=== PATIENT | male | born 1990 | race Caucasian/White ===

== ENCOUNTER 2022-12-04 06:39 | Outpatient (CLI) | payer BC, SELFPAY ==
[2022-12-04 08:20] LABS: Hematocrit 47.5 % (42.0-52.0); Hemoglobin 15.8 g/dL (14.0-18.0); Mean Corpuscular HGB Conc 33.3 g/dl (32-36); Mean Corpuscular Hemoglobin 30.7 pg (26-34); Mean Corpuscular Volume 92.4 fl (80-100); Mean Platelet Volume 10.1 fl (7.4-10.4); Platelet Count Result 246 k/mm3 (150-375); Red Blood Count 5.14 M/mm3 (4.6-6.20); Red Cell Distribution Width 11.9 % (11.5-14.5); White Blood Count 8.1 K/mm3 (4.5-10.0)
[2022-12-04 08:41] LABS: Alanine Aminotransferase 43 U/L (6-50); Albumin Level 4.2 g/dL (3.5-5.1); Alkaline Phosphatase 79 U/L (38-126); Anion Gap 7 mmol/L (8-16); Aspartate Amino Transferase 24 U/L (17-59); Bilirubin,Total 0.8 mg/dL (0.2-1.3); Blood Urea Nitrogen 17 mg/dL (9-20); Calcium 8.6 mg/dL (8.4-10.2); Carbon Dioxide 29 mmol/L (22-30); Chloride 104 mmol/L (98-107); Cholesterol 177 mg/dL (0-200); Estimated Glomerular Filt Rate > 60; Glucose 172 mg/dL (65-110); HDL Direct 34 mg/dL; Potassium 4.4 mmol/L (3.4-5.0); Sodium 140 mmol/L (137-145); Triglycerides 145 mg/dL (<150)
[2022-12-04 08:52] LABS: LDL Cholesterol Direct 121 mg/dL
[2022-12-04 09:10] LABS: Creatinine Urine 119.4 mg/dL
[2022-12-04 10:48] LABS: MALB Creatinine Ratio < 5.0 mg/g (0-30); Microalbumin Urine Random < 6.0 mg/L (0-16.7)
[2022-12-11 17:37] LABS: Testosterone Free 84.2 pg/mL (35.0-155.0); Testosterone Total 313 ng/dL (250-1100)
== END 2022-12-04 06:40 | disposition home or self-care (01) ==
LOC: ANHLAB 06:40
PROVIDERS: PCP Family Medicine; Visit Provider Nurse Practitioner Family
DX: Z13.29 Encounter for screening for other suspected endocrine disorder (principal); R53.83 Other fatigue; E78.2 Mixed hyperlipidemia
CPT/HCPCS: 36415; 80053; 80061; 82043; 84402; 84403; 84443; 85027

== ENCOUNTER 2022-12-31 15:24 | Outpatient (CLI) | payer BC, SELFPAY ==
[2022-12-31 15:57] LABS: Anion Gap 3 mmol/L (8-16); Blood Urea Nitrogen 18 mg/dL (9-20); Carbon Dioxide 31 mmol/L (22-30); Chloride 104 mmol/L (98-107); Estimated Glomerular Filt Rate > 60; Glucose 120 mg/dL (65-110); Potassium 3.7 mmol/L (3.4-5.0); Sodium 138 mmol/L (137-145)
[2023-01-06 18:59] LABS: Testosterone Total 162 ng/dL (250-1100)
== END 2022-12-31 15:25 | disposition home or self-care (01) ==
LOC: ANHLAB 15:25
PROVIDERS: PCP Family Medicine; Visit Provider Nurse Practitioner Family
DX: R79.89 Other specified abnormal findings of blood chemistry (principal); N28.9 Disorder of kidney and ureter, unspecified
CPT/HCPCS: 36415; 80048; 84402; 84403

== ENCOUNTER 2023-05-02 22:37 | Emergency (ER) | payer BC, SELFPAY ==
[2023-05-02 22:38] VITALS: BP 129/86; PULSE 92; RESP 14; TEMP 36.4; O2SAT 97
[2023-05-02 23:30] VITALS: BP 128/96; PULSE 80; RESP 14; O2SAT 97
--- NOTE | 2023-05-02 23:35 | ED.GENADULT ---
HPI - General Adult General Chief complaint: Alcohol Stated complaint: ETOH+ Time Seen by Provider: 05/02/23 23:01 History of Present Illness HPI narrative: Patient is a 32-year-old gentleman who presents the emergency department with chief complaint of alcohol intoxication patient reports that he has had a stressful day and drank half a bottle of bourbon this evening and felt highly intoxicated the patient vomited once does report that he had a gastric bypass and alcohol effects and rather rapidly. Related Data Allergies Allergy/AdvReac Type Severity Reaction Status Date / Time No Known Allergies Allergy Verified 03/10/23 15:53 Review of Systems Review of Systems: A 10 system review of systems was completed on the patient and is negative except for what is stated in the HPI. Nursing and ancillary documentation was reviewed. PMFSH Past Medical History Medical History Adult BMI 39.0-39.9 kg/sq m Balanitis BMI greater than 40 Diabetes Hyperlipidemia Screening for thyroid disorder Vitamin D deficiency, unspecified Yeast dermatitis of penis Surgical History Surgical History H/O shoulder surgery Hx of gastric bypass No pertinent past surgical history Family History Family History Father Lymphoma malignant, large cell Mother Lymphoma malignant, large cell Sibling Cancer Social History Social History Smoking status: Current every day smoker Smokeless tobacco user: chewing tobacco Second hand tobacco smoke exposure: Yes Alcohol intake: current Substance use: never Substance use type: does not use Lack of Transportation: No Lack of Food: Never True Current Housing: I Have Housing Concerned About Future Housing: No Difficulty Paying Gas/Electric Bills: No Difficulty Paying for Meds: No Currently Unemployed: No Education: Trade/Vocational Certificate Difficulty w/ Childcare or Family Care: No Living arrangements: with family Occupation/Education: occupation Gender identity (if verbalized by the patient): Male Exam Narrative: GENERAL: Well-appearing, well-nourished, and in no acute distress. HEAD: Normocephalic, atraumatic. EYES: PERRLA and EOMI. ENT: Nares clear, no rhinorrhea or epistaxis. Mucous membranes moist. NECK: Supple. CHEST: Clear to auscultation. No respiratory distress. HEART: Regular rate and rhythm. No murmur heard. Normal peripheral pulses. ABDOMEN: Soft, nontender, nondistended, normal active bowel sounds. EXTREMITIES: Normal range of motion. No edema. SKIN: Warm, dry, no rash. NEURO: No focal deficits. Alert and oriented x3. PSYCH: Normal mood and affect. Course Vital Signs Vital signs: Vital Signs Temperature 36.4 C L 05/02/23 22:38 Pulse Rate 92 05/02/23 22:38 Respiratory Rate 14 05/02/23 22:38 Blood Pressure 129/86 05/02/23 22:38 Pulse Oximetry 97 05/02/23 22:38 Oxygen Delivery Room Air 05/02/23 22:38 Temperature 36.4 C L 05/02/23 22:38 Pulse Rate 76 05/02/23 23:43 Respiratory Rate 16 05/02/23 23:43 Blood Pressure 128/96 H 05/02/23 23:43 Pulse Oximetry 96 05/02/23 23:43 Oxygen Delivery Room Air 05/02/23 22:38 Medical Decision Making MDM Narrative Medical decision making narrative: Differential diagnosis includes alcohol intoxication, dehydration, The patient was hydrated given antiemetics in the emergency department. Patient is feeling much better blood alcohol level was 198 Vital Signs Vital Signs: Vital Signs Temperature 36.4 C L 05/02/23 22:38 Pulse Rate 92 05/02/23 22:38 Respiratory Rate 14 05/02/23 22:38 Blood Pressure 129/86 05/02/23 22:38 Pulse Oximetry 97 05/02/23 22:38 Oxygen Delivery Room Air
[2023-05-02 23:43] VITALS: BP 128/96; PULSE 76; RESP 16; O2SAT 96
[2023-05-02] MEDS: SODIUM CHLORIDE 0.9% IV 1,000 ML 999 ML IV CONT (23:43)
[2023-05-02 23:44] LABS: Basophils Absolute Auto 0.1 K/mm3 (0.0-0.1); Eosinophils Absolute Auto 0.2 K/mm3 (0-0.3); Eosinophils Percent Auto 1.4 % (0-4.4); Hematocrit 44.3 % (42.0-52.0); Hemoglobin 14.7 g/dL (14.0-18.0); Immature Granulocyte Absolute 0.05 K/mm3 (0.00-0.031); Immature Granulocyte Percent A 0.4 % (0-0.5); Lymphocytes Absolute Auto 2.64 K/mm3 (0.9-3.2); Lymphocytes Percent Auto 21.2 % (18.3-44.2); Mean Corpuscular HGB Conc 33.2 g/dl (32-36); Mean Corpuscular Hemoglobin 30.9 pg (26-34); Mean Corpuscular Volume 93.3 fl (80-100); Mean Platelet Volume 9.7 fl (7.4-10.4); Monocytes Absolute Auto 0.8 K/mm3 (0.1-0.6); Neutrophils Absolute Auto 8.7 K/mm3 (1.3-6.7); Platelet Count Result 219 k/mm3 (150-375); Red Blood Count 4.75 M/mm3 (4.6-6.20); Red Cell Distribution Width 11.9 % (11.5-14.5); White Blood Count 12.5 K/mm3 (4.5-10.0)
[2023-05-02 23:56] LABS: Alanine Aminotransferase 31 U/L (6-50); Albumin Level 4.2 g/dL (3.5-5.1); Alkaline Phosphatase 85 U/L (38-126); Anion Gap 10 mmol/L (8-16); Aspartate Amino Transferase 23 U/L (17-59); Bilirubin,Total 0.4 mg/dL (0.2-1.3); Blood Urea Nitrogen 12 mg/dL (9-20); Calcium 8.3 mg/dL (8.4-10.2); Carbon Dioxide 21 mmol/L (22-30); Chloride 105 mmol/L (98-107); Estimated CRCL calculation 168 ml/min; Estimated Glomerular Filt Rate > 60; Glucose 209 mg/dL (65-110); Potassium 3.8 mmol/L (3.4-5.0); Sodium 136 mmol/L (137-145)
[2023-05-02 23:57] LABS: Ethanol 198 mg/dL (<10)
[2023-05-03 00:30] VITALS: BP 152/81; PULSE 65; RESP 14; O2SAT 95
== END 2023-05-03 00:58 | disposition home or self-care (01) ==
PROVIDERS: Emergency Provider Emergency Medicine; PCP Family Medicine
DX: F10.129 Alcohol abuse with intoxication, unspecified (principal); E11.9 Type 2 diabetes mellitus without complications; E78.5 Hyperlipidemia, unspecified; E55.9 Vitamin D deficiency, unspecified; Z98.84 Bariatric surgery status; F17.220 Nicotine dependence, chewing tobacco, uncomplicated; Y90.6 Blood alcohol level of 120-199 mg/100 ml; Z79.85 Long-term (current) use of injectable non-insulin antidiabetic drugs
CPT/HCPCS: 36415; 80053; 80307; 85025; 96360; 99283; J7030

== ENCOUNTER 2024-03-26 07:24 | Outpatient (CLI) | payer BC, SELFPAY ==
[2024-03-26 07:59] LABS: Basophils Absolute Auto 0.1 K/mm3 (0.0-0.1); Basophils Percent Auto 1.1 % (0.2-1.2); Eosinophils Absolute Auto 0.2 K/mm3 (0-0.3); Eosinophils Percent Auto 2.7 % (0-4.4); Hematocrit 44.8 % (42.0-52.0); Immature Granulocyte Absolute 0.03 K/mm3 (0.00-0.031); Immature Granulocyte Percent A 0.3 % (0-0.5); Lymphocytes Absolute Auto 2.96 K/mm3 (0.9-3.2); Lymphocytes Percent Auto 33.2 % (18.3-44.2); Mean Corpuscular HGB Conc 33.5 g/dl (32-36); Mean Corpuscular Hemoglobin 30.9 pg (26-34); Mean Corpuscular Volume 92.2 fl (80-100); Mean Platelet Volume 9.7 fl (7.4-10.4); Monocytes Absolute Auto 0.7 K/mm3 (0.1-0.6); Monocytes Percent Auto 7.3 % (2.6-8.5); Neutrophils Absolute Auto 4.9 K/mm3 (1.3-6.7); Neutrophils Percent Auto 55.4 % (45.5-73.1); Platelet Count Result 239 k/mm3 (150-375); Red Blood Count 4.86 M/mm3 (4.6-6.20); Red Cell Distribution Width 11.9 % (11.5-14.5); White Blood Count 8.9 K/mm3 (4.5-10.0)
[2024-03-26 08:13] LABS: Alanine Aminotransferase 40 U/L (6-50); Albumin Level 4.1 g/dL (3.5-5.1); Alkaline Phosphatase 78 U/L (38-126); Anion Gap 7 mmol/L (4-12); Aspartate Amino Transferase 23 U/L (17-59); Bilirubin,Total 0.7 mg/dL (0.2-1.3); Blood Urea Nitrogen 13 mg/dL (9-20); Calcium 8.8 mg/dL (8.4-10.2); Carbon Dioxide 31 mmol/L (22-30); Chloride 102 mmol/L (98-107); Estimated Glomerular Filt Rate > 60; Glucose 150 mg/dL (65-110); Potassium 4.8 mmol/L (3.4-5.0); Sodium 140 mmol/L (137-145)
[2024-03-26 10:18] LABS: Microalbumin Urine Random 25.3 mg/L (0-16.7)
[2024-03-26 10:20] LABS: Creatinine Urine 316.4 mg/dL
== END 2024-03-26 07:25 | disposition home or self-care (01) ==
LOC: ANHLAB 07:26
PROVIDERS: PCP Family Medicine; Referring Provider Nurse Practitioner Adult Health; Visit Provider Nurse Practitioner Family
DX: E11.9 Type 2 diabetes mellitus without complications (principal); G44.82 Headache associated with sexual activity
CPT/HCPCS: 36415; 80053; 82043; 85025

== ENCOUNTER 2024-04-16 15:58 | Outpatient (CLI) | payer BC, SELFPAY ==
--- NOTE | ~2024-04-16 | MR_ITS ---
EXAMINATION: MR brain/brain stem wo con DATE: 04/16/2024 16:29 INDICATION: Headache associated with sexual activity. TECHNIQUE: Magnetic resonance imaging (MRI) of the brain and brainstem was performed without intraven ous contrast. COMPARISON: None. FINDINGS: There is no intracranial hemorrhage, acute infarction, or abnormal intracranial mass lesion . The ventricles are normal in size. There is a mucous retention cyst in the left maxillary sinus. Th e mastoid air cells are normal. The orbits are normal. IMPRESSION: 1. Normal brain. Reviewed, dictated and finalized at location A. IMPRESSION: 1. Normal brain.
== END 2024-04-16 15:59 | disposition home or self-care (01) ==
LOC: MICIMG 15:59
PROVIDERS: PCP Family Medicine; Visit Provider Nurse Practitioner Adult Health
DX: G44.82 Headache associated with sexual activity (principal)
CPT/HCPCS: 70551

== ENCOUNTER 2024-09-19 09:59 | Outpatient (CLI) | payer BC, SELFPAY ==
[2024-09-19 10:36] LABS: Basophils Absolute Auto 0.1 K/mm3 (0.0-0.1); Basophils Percent Auto 1.2 % (0.2-1.2); Eosinophils Absolute Auto 0.2 K/mm3 (0-0.3); Eosinophils Percent Auto 2.4 % (0-4.4); Hematocrit 43.3 % (42.0-52.0); Hemoglobin 14.6 g/dL (14.0-18.0); Immature Granulocyte Absolute 0.02 K/mm3 (0.00-0.031); Immature Granulocyte Percent A 0.2 % (0-0.5); Lymphocytes Percent Auto 34.5 % (18.3-44.2); Mean Corpuscular HGB Conc 33.7 g/dl (32-36); Mean Corpuscular Volume 91.9 fl (80-100); Mean Platelet Volume 9.9 fl (7.4-10.4); Monocytes Absolute Auto 0.8 K/mm3 (0.1-0.6); Monocytes Percent Auto 9.2 % (2.6-8.5); Neutrophils Absolute Auto 4.4 K/mm3 (1.3-6.7); Neutrophils Percent Auto 52.5 % (45.5-73.1); Platelet Count Result 240 k/mm3 (150-375); Red Blood Count 4.71 M/mm3 (4.6-6.20); Red Cell Distribution Width 12.4 % (11.5-14.5); White Blood Count 8.4 K/mm3 (4.5-10.0)
== END 2024-09-19 10:00 | disposition home or self-care (01) ==
LOC: ANHLAB 10:01
PROVIDERS: PCP Family Medicine; Visit Provider Nurse Practitioner Family
DX: Z13.0 Encounter for screening for diseases of the blood and blood-forming organs and certain disorders involving the immune mechanism (principal); K92.1 Melena
CPT/HCPCS: 36415; 85025

== ENCOUNTER 2024-10-06 23:15 | Emergency (ER) | payer BC, SELFPAY ==
[2024-10-06 23:16] VITALS: BP 130/75; PULSE 92; RESP 16; TEMP 36.5; O2SAT 99
--- OUTSIDE RECORDS SUMMARY | 2024-10-06 23:17 | XMS_ITS | Clinical Summary ---
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 Gender Identity Not on file Sexual Orientation Not on file Plan of Treatment Health Maintenance Due Date Last Done Comments Depression Screening 1990 Hepatitis C Screening 1990 DTaP/Tdap/Td Vaccine (1 - Tdap) 2001 Varicella Vaccines (1 of 2 - 13+ 2-dose series) 11/11/2003 Hepatitis B Screening 2008 Regular Well Visit/Exam 18-64 2008 Influenza Vaccine (#1) 2024 HPV Vaccines Aged Out No longer eligi ble based on patient's age to complete this topic Pneumococcal vaccine <65 Aged Out No longer eligible based on patient's age to complete this topic Insurance [employer] ACC[employer] CHOICE [address] OOS Care Teams Border Patrol Officer Relationship Specialty Start Date End Date No, Physician PCP - General 12/30/20
--- OUTSIDE RECORDS SUMMARY | 2024-10-06 23:17 | XMS_ITS | Referral Summary ---
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
--- OUTSIDE RECORDS SUMMARY | 2024-10-06 23:18 | XMS_ITS | Continuity of Care Document ---
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 Name Role Phone Emeka Aranda PT Unavailable Unavailable Procedures Procedure Date PT Re-evaluation Therapeutic Activities Therapeutic Exercise Manual Therapy Hot or Cold Pack Therapeutic Activities Therapeutic Exercise Manual Therapy Hot or Cold Pack Therapeutic Activities Therapeutic Exercise Manual Therapy Hot or Cold Pack Therapeutic Activities Therapeutic Exercise Manual Therapy Hot or Cold Pack Therapeutic Activities Therapeutic Exercise Manual Therapy Hot or Cold Pack PT Re-evaluation Therapeutic Activities Therapeutic Exercise Manual Therapy Hot or Cold Pack Therapeutic Activities Therapeutic Exercise Manual Therapy Hot or Cold Pack Therapeutic Activities Therapeutic Exercise Manual Therapy Hot or Cold Pack Therapeutic Activities Therapeutic Exercise Manual Therapy Hot or Cold Pack PT Re-evaluation Therapeutic Activities Therapeutic Exercise Manual Therapy Hot or Cold Pack Therapeutic Activities Therapeutic Exercise Hot or Cold Pack Electrical Stimulation PT Evaluation Moderate Complexity Therapeutic Activities Therapeutic Exercise Manual Therapy Hot or Cold Pack Therapeutic Activities Neuromuscular Re-Ed Therapeutic Exercise Manual Therapy BELT LOOP MAKER Acute Neuromuscular Re-Ed Therapeutic Activities Therapeutic Exercise Manual Therapy Therapeutic Activities Neuromuscular Re-Ed Therapeutic Exercise Manual Therapy Therapeutic Activities Neuromuscular Re-Ed Therapeutic Exercise Manual Therapy Progress Note Therapeutic Activities Neuromuscular Re-Ed Therapeutic Exercise Manual Therapy Therapeutic Activities Neuromuscular Re-Ed Therapeutic Exercise Manual Therapy Therapeutic Activities Neuromuscular Re-Ed Therapeutic Exercise Manual Therapy Therapeutic Activities Neuromuscular Re-Ed Therapeutic Exercise Manual Therapy Therapeutic Activities Neuromuscular Re-Ed Therapeutic Exercise Manual Therapy Therapeutic Activities Neuromuscular Re-Ed Therapeutic Exercise BELT LOOP MAKER Acute Therapeutic Activities Neuromuscular Re-Ed Therapeutic Exercise Therapeutic Activities Neuromuscular Re-Ed Therapeutic Exercise Therapeutic Activities Neuromuscular Re-Ed Therapeutic Exercise Manual Therapy Therapeutic Activities Neuromuscular Re-Ed Therapeutic Exercise Manual Therapy Progress Note Therapeutic Activities Neuromuscular Re-Ed Therapeutic Exercise Manual Therapy Therapeutic Activities Neuromuscular Re-Ed Therapeutic Exercise Therapeutic Activities Neuromuscular Re-Ed Therapeutic Exercise Manual Therapy Therapeutic Activities Neuromuscular Re-Ed Manual Therapy Therapeutic Exercise Therapeutic Activities Neuromuscular Re-Ed Therapeutic Exercise Manual Therapy Therapeutic Activities Therapeutic Exercise Manual Therapy Neuromuscular Re-Ed Therapeutic Activities Therapeutic Exercise Neuromuscular Re-Ed Manual Therapy Progress Note Therapeutic Activities Therapeutic Exercise Neuromuscular Re-Ed Manual Therapy Therapeutic Activities Neuromuscular Re-Ed Therapeutic Exercise Manual Therapy Therapeutic Activities Manual Therapy Therapeutic Exercise Neuromuscular Re-Ed Therapeutic Activities Neuromuscular Re-Ed Manual Therapy Therapeutic Exercise Therapeutic Activities Neuromuscular Re-Ed Manual Therapy Therapeutic Exercise Neuromuscular Re-Ed Therapeutic Activities Manual Therapy Therapeutic Exercise Therapeutic Activities Manual Therapy Neuromuscular Re-Ed Therapeutic Exercise Therapeutic Activities PT Evaluation Moderate Complexity Therapeutic Exercise Therapeutic Activities Hot or Cold Pack Therapeutic Exercise Manual Therapy Neuromuscular Re-Ed Therapeutic Exercise Neuromuscular Re-Ed Manual Therapy Progress Note Therapeutic Activities Hot or Cold Pack Therapeutic Activities Neuromuscular Re-Ed Therapeutic Exercise Manual Therapy Hot or Cold Pack Therapeutic Activities Manual Therapy Therapeutic Exercise Neuromuscular Re-Ed Hot or Cold Pack Neuromuscular Re-Ed Therapeutic Activities Therapeutic Exercise Manual Therapy Hot or Cold Pack Therapeutic Activities Neuromuscular Re-Ed Therapeutic Exercise Hot or Cold Pack Manual Therapy Progress Note Therapeutic Activities Neuromuscular Re-Ed Therapeutic Exercise Manual Therapy Hot or Cold Pack Therapeutic Activities Therapeutic Exercise Neuromuscular Re-Ed Manual Therapy Therapeutic Activities Neuromuscular Re-Ed Therapeutic Exercise Manual Therapy Hot or Cold Pack Progress Note Neuromuscular Re-Ed Therapeutic Activities Hot or Cold Pack Therapeutic Exercise Manual Therapy Hot or Cold Pack Therapeutic Activities Neuromuscular Re-Ed Manual Therapy Therapeutic Exercise Therapeutic Activities Hot or Cold Pack Manual Therapy Therapeutic Exercise Neuromuscular Re-Ed Therapeutic Activities Therapeutic Exercise Neuromuscular Re-Ed Hot or Cold Pack Manual Therapy Therapeutic Activities Therapeutic Exercise Manual Therapy Hot or Cold Pack Neuromuscular Re-Ed Manual Therapy Therapeutic Activities Neuromuscular Re-Ed Therapeutic Exercise Hot or Cold Pack Manual Therapy Hot or Cold Pack Therapeutic Activities Therapeutic Exercise Neuromuscular Re-Ed Therapeutic Exercise Neuromuscular Re-Ed Hot or Cold Pack Manual Therapy PT Evaluation Low Complexity Hot or Cold Pack Manual Therapy Therapeutic Activities Neuromuscular Re-Ed Therapeutic Exercise Advance Directives Directive Yes / No Effective Date File Name No Information Encounters Encounter Description Practice Location Reason(s) For Visit Diagnoses Date Provider Providers Copied on Encounter [employer] [place] [facility] [address], [place], [place], [id number], [place] tel:[phone] [facility][1] No Information 4 Rosi Hendrickson. . [facility] [address], [place], [place], [id number], tel:[phone] [facility] Onsite No Information 4 Rosi Emeka. . Referring Provider: Moisés Muller [address], [place], [address]. tel:[phone] [place] [address] [address], [place], [place], [address], [place] tel:[phone] [facility] Onsite No Information 4 Rosi Emeka. . Referring Provider: Moisés Muller [address], [place], [address]. tel:[phone] [place] [address] [address], [place], [place], [address], tel:[phone] [facility] Onsite No Information 4 Rosi Emeka. . Referring Provider: Moisés Muller [address], [place], [address]. tel:[phone] [place] [address] [address], [place], [place], [address], tel:[phone] [facility] Onsite No Information 4 Rosi Hendrickson. . Referring Provider: Moisés Muller [address], [place], [address]. tel:[phone] [place] [address] [address], [place], [place], [address], [place] tel:[phone] [facility] Onsite No Information 4 Rosi Hendrickson. . Referring Provider: Moisés Muller [address], [place], [address]. tel:[phone] [facility], [place], [place], [address], [place] tel:[phone] [facility] Onsite No Information 4 Rosi Hendrickson. . Referring Provider: Moisés Muller [address], [place], [address]. tel:[phone] [facility], [facility] [address], [place], [place], [address], [place] tel:[phone] [facility] Onsite No Information 4 Rosi Hendrickson. . Referring Provider: Moisés Muller [address], [place], [address]. tel:[phone], [place], [place], [address], [place] tel:[phone] [facility] Onsite No Information 4 Rosi Hendrickson. . Referring Provider: Moisés Muller [address], [place], [address]. tel:[phone] [facility], [facility] [address], [place], [address], [place] tel:[phone] [facility] Onsite No Information 4 Rosi Hendrickson. . Referring Provider: Moisés Muller [address], [place], [address]. tel:[phone] [facility] [address], [place], [place], [address], [place] tel:[phone] [facility] Onsite No Information 4 Rosi Hendrickson. . Referring Provider: Moisés Muller [address], [place], [address]. tel:[phone] [facility], [place], [place], [address], [place] tel:[phone] [facility] Onsite No Information 4 Mindi Puentes. [address] [facility], [address], [place], [address], . tel: [phone] Referring Provider: Moisés Muller, [address], [place], [address]. tel:[phone] [facility], [address] [place], [place] [address], [place], [place], [address], tel:[phone] [facility] Onsite No Information 0 4 Mindi Puentes. [address] [facility], [address], [place], [address], [place]. tel: [phone] Referring Provider: Moisés Muller, [address], [place], [address]. tel:[phone] [facility], [address] [facility] [address], [place], [place], [address], tel:[phone] [place] No Information 2 Dillon Anatoliy. . Referring Provider: Jann Jose, [address], [place], [address]. tel:[phone] [facility] [address], [place], [place], [address], tel:[phone] [place] No Information 2 Dillon Anatoliy. . Referring Provider: Jann Jose, [address], [place], [address]. tel:[phone] [facility] [address], [place], [place], [address], [place] tel:[phone] [place] No Information 2- 2 Dillon Anatoliy. . Referring Provider: Jann Jose, [address], [place], [address]. tel:[phone] [facility], [place], [place], [address], tel:[phone] [place] No Information Dec-0 7- 2 Dillon Anatoliy. . Referring Provider: Jann Jose, [address], [place], [address]. tel:[phone] [facility] [address], [place], [place], [address], [place] tel:[phone] [place] No Information 2 Dillon Anatoliy. . Referring Provider: Jann Jose, [address], [place], [address]. tel:[phone] [facility] [address], [place], [place], [address], [place] tel:[phone] [place] No Information 2 Dillon Anatoliy. . Referring Provider: Jann Jose, [address], [place], [address]. tel:[phone] [facility] [address], [place], [place], [address], tel:[phone] [place] No Information 2 Dillon Anatoliy. . Referring Provider: Jann Jose, [address], [place], [address]. tel:[phone] [place] [address] [address], [place], [place], [address], [place] tel:[phone] [place] No Information 2 Dillon Anatoliy. . Referring Provider: Jann Jose, [address], [place], [address]. tel:[phone] [facility] [address], [place], [address], [place] tel:[phone] [place] No Information 2 Dillon Anatoliy. . Referring Provider: Jann Jose, [address], [place], [address]. tel:[phone] [facility], [place], [place], [address], [place] tel:[phone] [place] No Information 2 Dillon Anatoliy. . Referring Provider: Jann Jose, [address], [place], [address]. tel:[phone] [facility] [address], [place], [place], [address], [place] tel:[phone] [place] No Information Nov-1 4- 2 Dillon Anatoliy. . Referring Provider: Jann Jose, [address], [place], [address]. tel:[phone] [facility] [address], [place], [place], [address], [place] tel:[phone] [place] No Information Nov-0 9- 2 Dillon Anatoliy. . Referring Provider: Jann Jose, [address], [place], [address]. tel:[phone] [facility] [address], [place], [address], [place] tel:[phone] [place] No Information Nov-0 7- 2 Dillon Anatoliy. . Referring Provider: Jann Jose, [address], [place], [address]. tel:[phone] [facility] [address], [place], [place], [address], [place] tel:[phone] [place] No Information Nov-0 2-202 2 Dillon Anatoliy. . Referring Provider: Jann Jose, [address], [place], [address]. tel:[phone] [facility] [address], [place], [address], [place] tel:[phone] [place] No Information Apr-3 1-202 2 Dillon Anatoliy. . Referring Provider: Jann Jose, [address], [place], [address]. tel:[phone] [facility] [address], [place], [place], [address], [place] tel:[phone] [place] No Information Oct-2 6-202 2 Dillon Anatoliy. . Referring Provider: Jann Jose, [address], [place], [address]. tel:[phone] [facility] [address], [place], [place], [address], tel:[phone] [place] No Information 2 Dillon Anatoliy. . Referring Provider: Jann Jose, [address], [place], [address]. tel:[phone] [facility] [address], [place], [address], [place] tel:[phone] [place] No Information 2 Dillon Anatoliy. . Referring Provider: Jann Jose, [address], [place], [address]. tel:[phone] [facility] [address], [place], [place], [address], tel:[phone] [place] No Information 2 Hu Rodriguez. [address] [facility], [address], [place], [facility], . tel: [phone] Referring Provider: Jann Jose, [address], [place], [address]. tel:[phone] [facility] [address], [place], [address], [place] tel:[phone] [place] No Information 2 Dillon Anatoliy. . Referring Provider: Jann Jose, [address], [place], [address]. tel:[phone] [facility] [address], [place], [address], [place] tel:[phone] [place] No Information 0 2 Dillon Anatoliy. . Referring Provider: Jann Jose, [address], [place], [address]. tel:[phone] [facility], [place], [place], [address], [place] tel:[phone] [place] No Information Oct-0 6-202 2 Dillon Anatoliy. . Referring Provider: Jann Jose, [address], [place], [address]. tel:[phone] [facility] [address] [place], [place] [address], [place], [place], [address], [place] tel:[phone] [place] No Information Oct-0 3-202 2 Dillon Anatoliy. . Referring Provider: Jann Jose, [address], [place], [address]. tel:[phone] [facility] [address] [place], [place] [address], [place], [place], [address], tel:[phone] [place] No Information Sep-3 0-202 2 Dillon Anatoliy. . Referring Provider: Jann Jose, [address], [place], [address]. tel:[phone] [facility] [address] [facility], [place], [address], [place] tel:[phone] [place] No Information Sep-2 6-202 2 Dillon Anatoliy. . Referring Provider: Jann Jose, [address], [place], [address]. tel:[phone] [facility] [address] [facility], [place], [place], [address], [place] tel:[phone] [place] No Information Sep-2 2-202 2 Dillon Anatoliy. . Referring Provider: Jann Jose, [address], [place], [address]. tel:[phone] [facility] [address], [place], [place], [address], [place] tel:[phone] [place] No Information Sep-2 0-202 2 Modglin Bienvenido. . Referring Provider: Jann Jose, [address], [place], [address]. tel:[phone] [facility], [address] [facility] [address], [place], [place], [address], [place] tel:[phone] [place] No Information 2 Dillon Anatoliy. . Referring Provider: Jann Jose, [address], [place], [address]. tel:[phone] [facility] [address] [facility], [place], [place], [address], [place] tel:[phone] [place] No Information 2 Dillon Anatoliy. . Referring Provider: Jann Jose, [address], [place], [address]. tel:[phone] [facility] [address] [facility], [place], [place], [address], tel:[phone] [facility] Onsite No Information 2 Rosi Emeka. . Referring Provider: Jann Jose, [address], [place], [address]. tel:[phone] [facility] [address] [facility], [place], [place], [address], [place] tel:[phone] [facility] No Information 2 Rosi Emeka. . Referring Provider: Jann Jsoe, [address], [place], [address]. tel:[phone] [facility] [address] [facility], [place], [address], [place] tel:[phone] [facility] On[facility] No Information 2 Rosi Emeka. . Referring Provider: Jann Jose, [address], [place], [address]. tel:[phone] [facility], [place], [place], [address], [place] tel:[phone] [facility] On[facility] No Information 2 Rosi Emeka. . Referring Provider: Jann Jose, [address], [place], [address]. tel:[phone] [facility], [place], [place], [address], [place] tel:[phone] [facility] On[facility] No Information Apr-2 2-202 2 Rosi Emeka. . Referring Provider: Jann Jose, [address], [place], [address]. tel:[phone] [facility], [place], [place], [address], [place] tel:[phone] [facility] On[facility] No Information Apr-2 0-202 2 Rosi Emeka. . Referring Provider: Jann Jose, [address], [place], [address]. tel:[phone] [facility], [place], [place], [address], [place] tel:[phone] [facility] On[facility] No Information Apr-0 4-202 2 Rosi Emeka. . [facility], [place], [place], [address], [place] tel:[phone] [facility] No Information Mar-3 0-202 2 Rosi Emeka. . [facility], [place], [place], [address], [place] tel:[phone] [facility] No Information Mar-2 1-202 2 Rosi Emeka. . [facility], [place], [place], [address], [place] tel:[phone] [facility] On[facility] No Information Mar-1 8-202 2 Rosi Emeka. . [facility], [place], [place], [address], [place] tel:[phone] [facility] No Information Mar-1 6-202 2 Rosi Emeka. . [facility], [id number], tel:[phone] [facility] On[facility] No Information Sep-1 - 2 Rosi Hendrickson. . [facility], [id number], tel:[phone] [facility] No Information Sep-07 11- 2 Rosi Hendrickson. . [facility] [address], [id number], tel:[phone] [facility] No Information Mar-0 - 2 Mindi Tejadaian. [address] [facility], [address], [place], [address], . tel: [phone] [facility] [address] [place] [address], [id number], tel:[phone] [facility] No Information Mar-0 2 Rosi Emeka. . [facility], [id number], tel:[phone] [facility] No Information Mar-0 - 2 Rosi Emeka. . [facility], [id number], tel:[phone] [facility] No Information Mar-0 - 2 Rosi Hendrickson. . [facility], [id number], tel:[phone] [facility] No Information 2 Rosi Hendrickson. . Family History Family Member Type Diagnosis Age At Onset No Information Payers Payer name Insurance type Covered constitution party ID Authoriza tisummer(s) [employer] EPO WC SP WC [id number] Social History Type Description Quantity Date Captured Comments Sex Male Smoking Status No Information Chief Complaint And Reason For Visit No Information Reason For Referral Reason For Referral No Information Plan Of Treatment Date Type Action Status Goal Tobacco cessation counseling completed Goal Tobacco Cessation Counseling completed Goal Tobacco Cessation Counseling completed Goal Tobacco Cessation Counseling completed Goal Tobacco cessation counseling completed Goal Tobacco Cessation Counseling completed Goal Tobacco cessation counseling completed Goal Tobacco Cessation Counseling completed Goal Tobacco Cessation Counseling completed Goal Tobacco cessation counseling completed Goal Tobacco Cessation Counseling completed Goal Tobacco cessation counseling completed Goal Tobacco Cessation Counseling completed Goal Tobacco Cessation Counseling completed Goal Tobacco cessation counseling completed Referral Ordered: PCP timeframe: 1 week. (related to Overweight) ordered Referral Ordered: Weight management: Referral to physician timeframe: 1 Month. (related to Overweight) ordered History Of Present Illness Encounter Date Complaint History Of Prese nt Illness No Information Functional Status Date Functional Assessmen t No Information Instructions Date Instruction Additional Infor mation Dietary needs education Related to Overweight Prescribed activity/exercise edu cation Related to Overweight Assessments Type Assessment Date No Information Patient Care Teams Name Effective Dates (start - stop) Status Members No Information
--- NOTE | 2024-10-06 23:47 | PC.NURSE ---
Pt to intake desk. I am no longer going to wait. Pt ambulatory with steady gait to exit. no distress noted.
--- OUTSIDE RECORDS SUMMARY | 2024-10-07 | XMS_ITS | Clinical Summary ---
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
--- OUTSIDE RECORDS SUMMARY | 2024-10-07 | XMS_ITS | Continuity of Care Document ---
Author Organization [facility] Address [address] [facility] [address] [place] [address] Phone Care Team Providers Care Brim Curler Name Role Phone Emeka Aranda PT Unavailable [...] Activities Neuromuscular Re-Ed Therapeutic Exercise Manual Therapy DECISION SCIENCE ANALYST Acute Neuromuscular Re-Ed Therapeutic Activities Therapeutic Exercise [...] Therapy Therapeutic Activities Neuromuscular Re-Ed Therapeutic Exercise DECISION SCIENCE ANALYST Acute Therapeutic Activities Neuromuscular Re-Ed Therapeutic Exercise [...] Exercise Manual Therapy Therapeutic Activities Therapeutic Exercise Neuromuscular Re-Ed Manual Therapy Therapeutic Activities Therapeutic Exercise Neuromuscular Re-Ed Manual Therapy Progress Note Neuromuscular Re-Ed Therapeutic Activities Therapeutic Exercise Manual Therapy Therapeutic Activities Neuromuscular Re-Ed Manual Therapy Therapeutic Exercise Therapeutic Activities Manual Therapy Neuromuscular Re-Ed Therapeutic Exercise Neuromuscular Re-Ed Therapeutic Activities Therapeutic Exercise Manual Therapy Therapeutic Activities Neuromuscular Re-Ed Manual Therapy Therapeutic Exercise Therapeutic Activities Neuromuscular Re-Ed Therapeutic Exercise Manual Therapy Therapeutic Activities Neuromuscular Re-Ed Therapeutic Exercise Manual Therapy PT Evaluation Moderate Complexity Therapeutic Activities Therapeutic Exercise Therapeutic Activities Hot or Cold Pack Neuromuscular Re-Ed Therapeutic Exercise Manual Therapy Neuromuscular Re-Ed Therapeutic Exercise Progress Note Therapeutic Activities Manual Therapy Hot or Cold Pack Therapeutic Activities Therapeutic Exercise Manual Therapy Neuromuscular Re-Ed Hot or Cold Pack Therapeutic Activities Manual Therapy Therapeutic Exercise Neuromuscular Re-Ed Hot or Cold Pack Therapeutic Activities Neuromuscular Re-Ed Therapeutic Exercise Manual Therapy Hot or Cold Pack Therapeutic Activities Neuromuscular Re-Ed Manual Therapy Hot or Cold Pack Therapeutic Exercise Progress Note Therapeutic Activities Neuromuscular Re-Ed Therapeutic Exercise Manual Therapy Hot or Cold Pack Therapeutic Activities Therapeutic Exercise Neuromuscular Re-Ed Manual Therapy Neuromuscular Re-Ed Therapeutic Exercise Therapeutic Activities Manual Therapy Hot or Cold Pack Therapeutic Activities Progress Note Neuromuscular Re-Ed Therapeutic Exercise Manual Therapy Hot or Cold Pack Hot or Cold Pack Therapeutic Activities Neuromuscular Re-Ed Therapeutic Exercise Manual Therapy Therapeutic Activities Hot or Cold Pack Therapeutic Exercise Manual Therapy Neuromuscular Re-Ed Therapeutic Activities Therapeutic Exercise Neuromuscular Re-Ed Manual Therapy Hot or Cold Pack Therapeutic Activities Therapeutic Exercise Neuromuscular Re-Ed Manual Therapy Hot or Cold Pack Neuromuscular Re-Ed Therapeutic Activities Manual Therapy Therapeutic Exercise Hot or Cold Pack Neuromuscular Re-Ed Hot or Cold Pack Therapeutic Exercise Therapeutic Activities Manual Therapy Neuromuscular Re-Ed Therapeutic Exercise Hot or Cold Pack Manual Therapy PT Evaluation Low Complexity Hot or Cold Pack Neuromuscular Re-Ed Therapeutic Exercise Manual Therapy Therapeutic Activities Advance Directives Directive Yes / No Effective Date File Name No Information Encounters Encounter Description Practice Location Reason(s) For Visit Diagnoses Date Provider Providers Copied on Encounter [facility] [facility] [address], [place], [place], [id number], [place] tel:[phone] [facility] No Information 4 Rosi Hendrickson. . [facility] [address], [place], [place], [address], tel:[phone] [facility] On[facility] No Information 4 Rosi Emeka. . Referring Provider: Moisés Muller [address], [place], [address]. tel:[phone] [place] [address] [address], [place], [place], [address], [place] tel:[phone] [facility] On[facility] No Information 4 Rosi Emeka. . Referring Provider: Moisés Muller [address], [place], [address]. tel:[phone] [place] [address] [address], [place], [place], [address], tel:[phone] [facility] No Information 4 Rosi Emeka. . Referring Provider: Moisés Muller [address], [place], [address]. tel:[phone] [place] [address] [address], [place], [place], [address], tel:[phone] [facility] No Information 4 Rosi Hendrickson. . Referring Provider: Moisés Muller [address], [place], [address]. tel:[phone] [place] [address] [address], [place], [place], [address], [place] tel:[phone] [facility] No Information 4 Rosi Hendrickson. . Referring Provider: Moisés Muller [address], [place], [address]. tel:[phone] [facility], [place], [place], [address], [place] tel:[phone] [facility] On[facility] No Information 4 Rosi Hendrickson. . Referring Provider: Moisés Muller [address], [place], [address]. tel:[phone] [facility], [facility] [address], [place], [place], [address], [place] tel:[phone] [facility] No Information 4 Rosi Hendrickson. . Referring Provider: Moisés Muller [address], [place], [address]. tel:[phone], [place], [place], [address], [place] tel:[phone] [facility] No Information 4 Rosi Hendrickson. . Referring Provider: Moisés Muller [address], [place], [address]. tel:[phone] [facility], [facility] [address], [place], [place], [address], [place] tel:[phone] [facility] No Information 4 Rosi Hendrickson. . Referring Provider: Moisés Muller [address], [place], [address]. tel:[phone] [facility] [address], [place], [place], [address], [place] tel:[phone] [facility] No Information 4 Rosi Hendrickson. . Referring Provider: Moisés Muller [address], [place], [address]. tel:[phone] [facility], [place], [place], [address], [place] tel:[phone] [facility] On[facility] No Information 4 Mindi Puentes. [address] [facility], [address], [place], [address], . tel: [phone] Referring Provider: Moisés Muller, [address], [place], [address]. tel:[phone] [facility], [address] [place], [place] [address], [place], [place], [id number], tel:[phone] [facility] On[facility] No Information 0 4 Mindi Puentes. [address] [facility], [address], [place], [address], [place]. tel: [phone] Referring Provider: Moisés Muller, [address], [place], [address]. tel:[phone] [facility], [address] [facility] [address], [place], [place], [address], tel:[phone] [place] No Information 2 Dillon Anatoliy. . Referring Provider: Jann Jose, [address], [place], [address]. tel:[phone] [facility] [address], [place], [place], [address], tel:[phone] [place] No Information 2 Dillon Anatoliy. . Referring Provider: Jann Jose, [address], [place], [address]. tel:[phone] [facility] [address], [place], [place], [address], [place] tel:[phone] [place] No Information 2- 2 Dillon Anatoliy. . Referring Provider: Jann Jose, [address], [place], [address]. tel:[phone] [facility], [place], [place], [address], tel:[phone] [place] No Information Dec-0 7- 2 Dillon Anatoliy. . Referring Provider: Jann Jose, [address], [place], [address]. tel:[phone] [facility] [address], [place], [place], [address], [place] tel:[phone] [place] No Information 2 Dillon Anatoliy. . Referring Provider: Jann Jose, [address], [place], [address]. tel:[phone] [facility] [address], [place], [place], [address], [place] tel:[phone] [place] No Information 2 Dillon Anatoliy. . Referring Provider: Jann Jose, [address], [place], [address]. tel:[phone] [facility] [address], [place], [place], [address], tel:[phone] [place] No Information 2 Dillon Anatoliy. . Referring Provider: Jann Jose, [address], [place], [address]. tel:[phone] [place] [address] [address], [place], [place], [address], [place] tel:[phone] [place] No Information 2 Dillon Anatoliy. . Referring Provider: Jann Jose, [address], [place], [address]. tel:[phone] [facility] [address], [place], [place], [address], [place] tel:[phone] [place] No Information 2 Dillon Anatoliy. . Referring Provider: Jann Jose, [address], [place], [address]. tel:[phone] [facility], [place], [place], [address], [place] tel:[phone] [place] No Information 2 Dillon Anatoliy. . Referring Provider: Jann Jose, [address], [place], [address]. tel:[phone] [facility] [address], [place], [place], [address], [place] tel:[phone] [place] No Information Nov-1 4- 2 Dillon Anatoliy. . Referring Provider: Jann Jose, [address], [place], [address]. tel:[phone] [facility] [address], [place], [place], [address], [place] tel:[phone] [place] No Information Nov-0 9- 2 Dillon Anatoliy. . Referring Provider: Jann Jose, [address], [place], [address]. tel:[phone] [facility] [address], [place], [place], [address], [place] tel:[phone] [place] No Information Nov-0 7- 2 Dillon Anatoliy. . Referring Provider: Jann Jose, [address], [place], [address]. tel:[phone] [facility] [address], [place], [address], [place] tel:[phone] [place] No Information Nov-0 2-202 2 Dillon Anatoliy. . Referring Provider: Jann Jose, [address], [place], [address]. tel:[phone] [facility] [address], [place], [place], [address], [place] tel:[phone] [place] No Information Apr-3 1-202 2 Dillon Anatoliy. . Referring Provider: Jann Jose, [address], [place], [address]. tel:[phone] [facility] [address], [place], [address], [place] tel:[phone] [place] No Information Oct-2 6-202 2 Dillon Anatoliy. . Referring Provider: Jann Jose, [address], [place], [address]. tel:[phone] [facility] [address], [place], [place], [address], tel:[phone] [place] No Information 2 Dillon Anatoliy. . Referring Provider: Jann Jose, [address], [place], [address]. tel:[phone] [facility] [address], [place], [place], [address], [place] tel:[phone] [place] No Information 2 Dillon Anatoliy. . Referring Provider: Jann Jose, [address], [place], [address]. tel:[phone] [facility] [address], [place], [place], [address], tel:[phone] [place] No Information 2 Hu Rodriguez. [address] [facility], [address], [place], [facility], . tel: [phone] Referring Provider: Jann Jose, [address], [place], [address]. tel:[phone] [facility] [address], [place], [address], [place] tel:[phone] [place] No Information 2 Dillon Anatoliy. . Referring Provider: Jann Jose, [address], [place], [address]. tel:[phone] [facility] [address], [place], [address], [place] tel:[phone] [place] No Information 0 2 Dillon Anatoliy. . Referring Provider: Jann Jose, [address], [place], [address]. tel:[phone] [facility], [place], [place], [address], [place] tel:[phone] [place] No Information Oct-0 6-202 2 Dillon Anatoliy. . Referring Provider: Jann Jose, [address], [place], [address]. tel:[phone] [facility] [address] [place], [place] [address], [place], [place], [address], [place] tel:[phone] [place] No Information Oct-0 3-202 2 Dillon Anatoliy. . Referring Provider: Jann Jose, [address], [place], [address]. tel:[phone] [facility] [address] [place], [place] [address], [place], [place], [address], tel:[phone] [place] No Information Sep-3 0-202 2 Dillon Anatoliy. . Referring Provider: Jann Jose, [address], [place], [address]. tel:[phone] [facility] [address] [facility] [address], [place], [place], [address], [place] tel:[phone] [place] No Information Sep-2 6-202 2 Dillon Anatoliy. . Referring Provider: Jann Jose, [address], [place], [address]. tel:[phone] [facility] [address] [facility] [address] [address], [place], [address], [place] tel:[phone] [place] No Information Sep-2 2-202 2 Dillon Anatoliy. . Referring Provider: Jann Jose, [address], [place], [address]. tel:[phone] [facility] [address], [place], [place], [address], [place] tel:[phone] [place] No Information Sep-2 0-202 2 Modglin Bienvenido. . Referring Provider: Jann Jsoe, [address], [place], [address]. tel:[phone] [facility], [address] [facility], [place], [place], [address], [place] tel:[phone] [place] No Information 2 Dillon Anatoliy. . Referring Provider: Jann Jose, [address], [place], [address]. tel:[phone] [facility] [address] [facility] [address] [address], [place], [place], [address], [place] tel:[phone] [place] No Information 2 Dillon Anatoliy. . Referring Provider: Jann Jose, [address], [place], [address]. tel:[phone] [facility] [address] [facility] [address] [address], [place], [place], [address], tel:[phone] [facility] No Information 2 Rosi Emeka. . Referring Provider: Jann Jose, [address], [place], [address]. tel:[phone] [facility] [address] [facility] [address] [address], [place], [place], [address], [place] tel:[phone] [facility] No Information 2 Rosi Emeka. . Referring Provider: Jann Jose, [address], [place], [address]. tel:[phone] [facility] [address] [facility] [address] [address], [place], [place], [address], [place] tel:[phone] [facility] No Information 2 Rosi Emeka. . Referring Provider: Jann Jose, [address], [place], [address]. tel:[phone] [facility], [place], [place], [address], [place] tel:[phone] [facility] No Information 2 Rosi Emeka. . Referring Provider: Jann Jose, [address], [place], [address]. tel:[phone] [facility], [place], [place], [address], [place] tel:[phone] [facility] No Information Apr-2 2-202 2 Rosi Emeka. . Referring Provider: Jann Jose, [address], [place], [address]. tel:[phone] [facility], [place], [place], [address], [place] tel:[phone] [facility] No Information Apr-2 0-202 2 Rosi Emeka. . Referring Provider: Jann Jose, [address], [place], [address]. tel:[phone] [facility], [place], [place], [address], [place] tel:[phone] [facility] No Information Apr-0 4-202 2 Rosi Emeka. . [facility], [place], [place], [address], [place] tel:[phone] [facility] No Information Mar-3 0-202 2 Rosi Emeka. . [facility], [place], [place], [address], [place] tel:[phone] [facility] No Information Mar-2 1-202 2 Rosi Emeka. . [facility], [place], [place], [address], [place] tel:[phone] [facility] No Information Mar-1 8-202 2 Rosi Emeka. . [facility], [place], [place], [address], [place] tel:[phone] [facility] No Information Mar-1 6-202 2 Rosi Emeka. . [facility], [id number], tel:[phone] [facility] No Information Sep-1 - 2 Rosi Hendrickson. . [facility], [id number], tel:[phone] [facility] No Information Sep-07 11- 2 Rosi Hendrickson. . [facility] [address], [id number], tel:[phone] [facility] No Information Mar-0 - 2 Mindi Tejadaian. [address] [facility], [address], [place], [address], . tel: [phone] [facility] [address] [place] [address], [id number], tel:[phone] [facility] No Information Mar-0 2 Rosi Emeka. . [facility], [id number], tel:[phone] [facility] No Information Mar-0 - 2 Rosi Emeka. . [facility], [id number], tel:[phone] [facility] No Information Mar-0 - 2 Rosi Hendrickson. . [facility], [id number], tel:[phone] [facility] No Information 2 Rosi Hendrickson. . Family History Family Member Type Diagnosis Age At Onset No Information Payers Payer name Insurance type Covered constitution party ID Authoriza tisummer(s) [employer] EPO WC SP WC [id number] Social History Type Description Quantity Date Captured [...]
--- OUTSIDE RECORDS SUMMARY | 2024-10-07 | XMS_ITS | Referral Summary ---
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
== END 2024-10-07 01:59 | disposition left against medical advice (07) ==
LOC: ANHED 23:58
PROVIDERS: PCP Family Medicine
DX: H57.12 Ocular pain, left eye (principal)
CPT/HCPCS: 99199

== ENCOUNTER 2025-06-14 08:11 | Outpatient (CLI) | payer BC, SELFPAY ==
[2025-06-14 08:44] LABS: Hematocrit 45.6 % (42.0-52.0); Hemoglobin 15.3 g/dL (14.0-18.0); Mean Corpuscular HGB Conc 33.6 g/dl (32-36); Mean Corpuscular Hemoglobin 31.2 pg (26-34); Mean Corpuscular Volume 93.1 fl (80-100); Platelet Count Result 243 k/mm3 (150-375); Red Blood Count 4.90 M/mm3 (4.6-6.20); White Blood Count 7.2 K/mm3 (4.5-10.0)
[2025-06-14 09:09] LABS: MALB Creatinine Ratio 3.3 mg/g (0-30)
[2025-06-14 09:15] LABS: Alanine Aminotransferase 30 U/L (6-50); Albumin Level 4.3 g/dL (3.5-5.1); Alkaline Phosphatase 73 U/L (38-126); Anion Gap 5 mmol/L (4-12); Aspartate Amino Transferase 23 U/L (17-59); Bilirubin,Total 0.9 mg/dL (0.2-1.3); Blood Urea Nitrogen 17 mg/dL (9-20); Calcium 8.8 mg/dL (8.4-10.2); Carbon Dioxide 28 mmol/L (22-30); Chloride 108 mmol/L (98-107); Cholesterol 197 mg/dL (0-200); Estimated Glomerular Filt Rate > 60; Glucose 130 mg/dL (65-110); HDL Direct 38 mg/dL; Potassium 4.6 mmol/L (3.4-5.0); Sodium 141 mmol/L (137-145); Total Protein 7.2 g/dL (6.3-8.2); Triglycerides 76 mg/dL (<150)
[2025-06-14 09:50] LABS: Thyroid Stimulating Hormone 1.220 uIU/mL (0.465-4.680)
[2025-06-19 10:08] LABS: Free Testosterone (Direct) 7.7 pg/mL (8.7-25.1)
== END 2025-06-14 08:12 | disposition home or self-care (01) ==
LOC: ANHLAB 08:13
PROVIDERS: PCP Family Medicine; Visit Provider Nurse Practitioner Family
DX: E78.2 Mixed hyperlipidemia (principal); E11.69 Type 2 diabetes mellitus with other specified complication; R80.9 Proteinuria, unspecified; R53.83 Other fatigue; R79.89 Other specified abnormal findings of blood chemistry
CPT/HCPCS: 36415; 80053; 80061; 82043; 84402; 84403; 84443; 85027